=== PATIENT | female | born 1995 | race Caucasian/White ===

== ENCOUNTER 2021-09-25 17:00 | Emergency (ER) | payer OTHER ==
[~2021-09-25] VITALS: Ht 152.4 cm; Wt 66.0 kg
[~2021-09-25 17:00] MED LIST: CEPH500C2 MT; TOPUD MT
[2021-09-25] MEDS ORDERED: ONDANSETRON HCL 4MG/2ML INJ IV STA (17:08)
[2021-09-25] MEDS ORDERED: FAMOTIDINE 20MG/2ML VIAL IV STA (17:08)
[2021-09-25] MEDS ORDERED: SODIUM CHLORIDE 0.9% 1,000 ML IV ONE (17:15)
[2021-09-25 17:36] LABS: CLARITY URINE TURBID (CLEAR); COLOR URINE YELLOW (YELLOW); KETONES URINE NEGATIVE (NEGATIVE); LEUKOCYTE ESTERASE URINE NEGATIVE (NEGATIVE); NITRITE URINE NEGATIVE (NEGATIVE); OCCULT BLOOD URINE NEGATIVE (NEGATIVE); PH URINE 7.5 (4.5-8.0); PROTEIN URINE NEGATIVE (NEGATIVE); SPECIFIC GRAVITY URINE 1.013 (1.005-1.030); UROBILINOGEN URINE 0.2 E.U./dL (0.2-1.0)
[2021-09-25 17:49] LABS: BASOPHILS % 0.6 % (0.0-2.0); EOSINOPHILS % 0.5 % (0.0-5.0); HEMATOCRIT. 37.6 % (36.0-48.0); HEMOGLOBIN. 13.2 g/dL (12.0-16.0); MEAN CORPUSCULAR HEMOGLOBIN 28.4 pg (28.0-32.0); MEAN PLATELET VOLUME 9.2 fl (7.4-10.4); MONOCYTES % 7.4 % (2.0-8.0); NEUTROPHILS % 73.5 % (40.0-76.0); PLATELET 310 x1000/uL (130-400); RED BLOOD CELL COUNT 4.64 mill/uL (4.2-5.4); RED CELL DISTRIBUTION WIDTH 14.3 % (11.6-14.6)
[2021-09-25 17:56] LABS: CHLORIDE 105 mEq/L (98-107)
[2021-09-25 18:30] LABS: B-HCG QUANTITATIVE 75195 mIU/mL (<3)
[2021-09-25 19:32] VITALS: BP 109/66
[2021-09-25] MEDS ORDERED: FAMO-135 MT (20:34)
== END 2021-09-25 20:40 | disposition home or self-care (01) ==
LOC: ER 17:00
DX: O26.891 Other specified pregnancy related conditions, first trimester (principal); K76.0 Fatty (change of) liver, not elsewhere classified; Z3A.01 Less than 8 weeks gestation of pregnancy
CPT/HCPCS: 36415; 76705; 76801; 76817; 80053; 81003; 83690; 84702; 85025; 86850; 86900; 86901; 96361; 96374; 96375; 99284; J2405; J3490; J7030